=== PATIENT | female | born 1980 | race African-American/Black ===

== ENCOUNTER 2017-01-28 17:02 | Emergency (ER) | payer OTHER ==
[~2017-01-28] VITALS: Ht 157.5 cm; Wt 105.0 kg
[2017-01-28 17:10] VITALS: BP 139/94; PULSE 98; RESP 15; TEMP 98.4; O2SAT 99
[2017-01-28 17:11] VITALS: BP 139/94; PULSE 86; RESP 13; TEMP 98.3; O2SAT 97
[2017-01-28 17:30] VITALS: BP 163/108; PULSE 88; RESP 18; TEMP 98.2; O2SAT 98
[2017-01-28 17:31] VITALS: BP 163/108; PULSE 88; RESP 18; TEMP 98.2; O2SAT 98
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
[2017-01-28 19:17] VITALS: BP 140/69; PULSE 78; RESP 18; O2SAT 98
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
== END 2017-01-28 21:18 | disposition home or self-care (01) ==
LOC: NEPD 17:02
DX: T74.21XA Adult sexual abuse, confirmed, initial encounter (principal); M25.562 Pain in left knee; X58.XXXA Exposure to other specified factors, initial encounter; Z72.0 Tobacco use
CPT/HCPCS: 73564; 99283